=== PATIENT | male | born 1970 | race Caucasian/White ===

== ENCOUNTER 2018-11-14 18:55 | Emergency (ER) | payer MEDICAID ==
[~2018-11-14] VITALS: Ht 172.7 cm; Wt 80.7 kg
[2018-11-14 19:00] VITALS: Ht 172.7 cm; Wt 80.7 kg
[2018-11-14 22:20] VITALS: BP 101/69
== END 2018-11-14 22:20 | disposition home or self-care (01) ==
LOC: ED 18:55
DX: J98.01 Acute bronchospasm (principal); R07.89 Other chest pain; M54.9 Dorsalgia, unspecified
CPT/HCPCS: 87804; J2930; J7613; J7644